=== PATIENT | male | born 1960 | race Caucasian/White ===

== ENCOUNTER 2022-05-07 08:30 | Outpatient (RCR) | payer OTHER, SELFPAY ==
--- NOTE | 2022-04-23 12:25 | ST.IPIE ---
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 Barksdale Reason for Referral dysphonia Setting Setting Outpatient Care Patient History Patient History Pt presents for a voice evaluation secondary to vocal hoarseness and fatigue. He was examined by Dr. Barksdale, who noted true vocal folds to be WNL in form but noted vocal fold tension during phonation. Pt reported that since his appointment with Dr. Barksdale, his voice has improved with no aphonic episodes. He described his improvement as ~ 40-50% better. Pt has a PMH of reflux (treated successfully via surgery, per pt) and hearing loss. 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 Pt reported that he will get seasonal allergies, although he has never had his allergies tested. PND and phlegm were described as causing frequent throat clearing. He reported drinking 1-2 quarts of water daily. 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 he has hearing aids, per MD report, but does not wear them. Educational Status Education Level graduate degree Occupational Status Occupation Status retired [employer] Previous Therapy Previous Speech-Language Therapy No Oral Motor Assessment Source: [place] [employer] ([employer]). Oral-Motor Eval Completed Informal observation indicated oral structures and function to be WNL Subjective Subjective Pt is pleasant and enjoys talking. He describes himself as a talker with a lot of embellishment. He noted that he talks loudly and with emphasis. - Laryngeal Performance S/Z Ratio Functional for Speech Yes Reduced Laryngeal Function Relative to No Respiration CAPE-V Overall Severity 15 Roughness 18 Breathiness 10 Strain 0 Pitch 0 Loudness 0 Normal Resonance? Yes Other Features Observed Vocal quality was observed to drop into glottal evans; self corrected Maximum Phonation Time MPT Norms: Women (15-25) Men (25-35) Loudness (50-60 dB); Speaking Rate: Oral Reading of Sentences (190 Words Per Minute); Oral Reading of Paragraphs (160-170 WPM); Speaking Rate in Conversation (150-250 WPM) Maximum Phonation Time 21.5s Maximum Phonation Time Adequate for Speech Jitter/Shimmer Norms: Jitter (Less than or equal to 1.040% - Frequency) Norms: Shimmer (Less than or equal to 3.810% - Amplitude) Jitter .46 Shimmer 5.34 Pitch [place] Pitch [place] WNL Muscle Tension Assessment Muscle Tension Assessment Neck,Shoulders Breath Support Breath Support At Rest Abdominal Breath Support Sustained Phonation Abdominal Breath Support Conversation Abdominal Speaks on Room Air Yes Postural Alignment Stance Militaristic Voice Pitch Range Norms: Women (100-300 Hz) Men (70-250 Hz) Fundamental Frequency Norms: Women (Mean: 225 Hz; Range: 155-334 Hz) Men ( Mean: 128 Hz; Range: 85-196 Hz) Voice Pitch Normal Voice Loudness Mildly Loud Voice Phonatory-based Quality Normal Fundamental Frequency 129.2 Hz Intensity WNL to mildly loud Paradoxical Vocal Fold Movement No Indications Resonance Nasal Resonance Normal Other Observations Throat Clearing Findings Findings No Impairment Voice/Resonance Assessment Assessment Pt presented for assessment of voice due to concerns of hoarseness fading to aphonia. Pt reported this to have started in June/July. Prior to that time, he had moved from [place] to [place] to retire. Pt did report improvement in his voice over the past few months . The results of the assessment performed today indicated vocal parameters to be WNL. Vocal quality was observed to be WNL to mildly hoarse. It was suggested that the pt cbe referred for allergy testing. As the pt had recently changed locations, he may have become exposed to new allergens, increasing PND/ phlegm and thereby irritating the vocal tract. As the pt is a self-described loquacious person, the amount of and intensity of his vocal use resulted in irritated vocal folds resulting in hoarseness. Pt indicated he would start taking an antihistamine daily to see if would be beneficial. He was encouraged to speak with Dr. Barksdale about that idea. A follow-up appointment is scheduled. Prognosis Rehabilitation Potential Excellent - Recommendations Treatment Recommended Yes: 1-2 appointments as follow up [facility] Goals Pt's vocal quality will improve to WNL Referrals Voice/Resonance Other Referral Logger Patient/Caregiver Education Patient/Family Education Described results of evaluation,Patient Understanding Vocally Abusive Behavior Behavior Rating Environmental Irritant Exposure possible allergies Excessive Talking Always
--- NOTE | 2022-05-07 09:06 | ST.OPPOC ---
Physical, Occupational & Speech Therapy At [facility] Visit Care Team Role Provider Type Neeraj Wright MD Family Provider Physician Primary Care Provider Address: [address], [address], [place], [address] Oli Barksdale MD Attending Provider Physician Referring Provider Address: [address] [place] [address], [address] Speech Pathology Plan of Care Plan of Care Dates 04/23/22-07/23/[address] Barksdale Patient History Pt presents for a voice evaluation secondary to vocal hoarseness and fatigue. He was examined by Dr. Barksdale, who noted true vocal folds to be WNL in form but noted vocal fold tension during phonation. Pt reported that since his appointment with Dr. Barksdale, his voice has improved with no aphonic episodes. He described his improvement as ~40-50% better. Pt has a PMH of reflux (treated successfully via surgery, per pt) and hearing loss. 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 Pt reported that he will get seasonal allergies, although he has never had his allergies tested. PND and phlem were described as causing frequent throat clearing. He reported drinking 1 -2 quarts of water daily. [ End ] Impairments Identified Voice Short Term Goals Pt presented for assessment of voice due to concerns of hoarseness fading to aphonia. Pt reported this to have started in June/ July. Prior to that time, he had moved from [place] to [place] to retire. Pt did report improvement in his voice over the past few months. The results of the assessment performed today indicated vocal parameters to be WNL. Vocal quality was observed to be WNL to mildly hoarse. It was suggested that the pt be referred for allergy testing. As the pt had recently changed locations, he may have become exposed to new allergens, increasing PND/phlegm and thereby irritating the vocal tract. As the pt is a self -described loquacious person, the amount of and intensity of his vocal use resulted in irritated vocal folds resulting in hoarseness. Pt indicated he would start taking an antihistamine daily to see if would be beneficial. He was encouraged to speak with Dr. Barksdale about that idea. A follow-up appointment is scheduled. Correction Goals Pt's vocal quality will improve to WNL Progress Towards Goals Excellent Progress Comment: Electronically Signed by: OLIVIA Chen 05/07/22 0906 If you are in agreement with this Plan of Care, please return a signed and dated copy. I have reviewed this Plan of Care and certify that the skilled therapy services above are required to meet the patient?s needs. Physician Signature Date Printed Name and Credentials Clinical Instructor Signature Printed Name and Credentials
--- NOTE | 2022-05-07 09:07 | ST.OPTN ---
Visit Care Team Role Provider Type Neeraj Wright MD Family Provider Physician Primary Care Provider Address: [address], [address], [place], [address] Oli Barksdale MD Attending Provider Physician Referring Provider Address: [address] [place] [address], [address] DRYING ROOM SUPERVISOR Treatment Note DRYING ROOM SUPERVISOR Treatment Note Start: 04/23/22 10:09 Freq: Status: Active Protocol: Document 05/07/22 08:54 LNK (Rec: 05/07/22 09:06 LNK [id number]) Speech Pathology Treatment Note Session Time Visit Start Time 08:30 Visit Stop Time 09:00 Total Visit Minutes 30 Visit Information Visit Number 2 Plan of Care Dates 04/23/22-07/23/22 Setting Treatment Setting Outpatient Care Visit Type Note Type Treatment Note Next Note Type Next Note Type Discharge Summary General Information Patient History Pt presents for a voice evaluation secondary to vocal hoarseness and fatigue. He was examined by Dr. Barksdale, who noted true vocal folds to be WNL in form but noted vocal fold tension during phonation. Pt reported that since his appointment with Dr. Barksdale, his voice has improved with no aphonic episodes. He described his improvement as ~ 40-50% better. Pt has a PMH of reflux (treated successfully via surgery, per pt) and hearing loss. 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 Pt reported that he will get seasonal allergies, although he has never had his allergies tested. PND and phlem were described as causing frequent throat clearing. He reported drinking 1-2 quarts of water daily. [ End ] Subjective Identification Type Name,Date of Chief Complaint(s) Voice Patient Knowledge/Awareness of DRYING ROOM SUPERVISOR Role Excellent in Treatment Patient/Caregiver Compliance with Home Excellent Exercise Program Objective Short Term Goals Pt presented for assessment of voice due to concerns of hoarseness fading to aphonia. Pt reported this to have started in June/July. Prior to that time, he had moved from [place] to [place] to retire. Pt did report improvement in his voice over the past few months . The results of the assessment performed today indicated vocal parameters to be WNL. Vocal quality was observed to be WNL to mildly hoarse. It was suggested that the pt be referred for allergy testing. As the pt had recently changed locations, he may have become exposed to new allergens, increasing PND/ phlegm and thereby irritating the vocal tract. As the pt is a self-described loquacious person, the amount of and intensity of his vocal use resulted in irritated vocal folds resulting in hoarseness. Pt indicated he would start taking an antihistamine daily to see if would be beneficial. He was encouraged to speak with Dr. Barksdale about that idea. A follow-up appointment is scheduled. Treatment Activities Pt seen for follow-up appointment. Pt initially c/o hoarseness and loss of voice by the end of the day. Following the assessment on 04/23/22, it was recommended at that time that pt discuss the possibility of allergies as contributing to his vocal quality. Pt returned today and indicated that he started taking an antihistamine daily . He reported that his voice has improved significantly. He feels his vocal quality is back to normal and he hasn't lost his voice since starting the antihistamine. Pt indicated he did not need to return for therapy. Will discharge. Assessment Patient Response to Treatment Excellent Impairments Identified Voice Progress Towards Goals Excellent Progress Assessment of Overall Progress Rehabilitated Patient/Caregiver Understanding Excellent Plan Amount of Therapy Recommended No Further Therapy Frequency of Treatment No Further Therapy Therapy Recommendations Discharge from Speech Therapy
--- NOTE | 2022-05-07 09:09 | ST.OPDS ---
Visit Care Team Role Provider Type Neeraj Wright MD Family Provider Physician Primary Care Provider Address: [address], [address], [place], [address] Oli Barksdale MD Attending Provider Physician Referring Provider Address: [address] [place] [address], [id number] CAMP[facility] DEAN Treatment Note C[facility]AN Treatment Note Start: 04/23/22 10:09 Freq: Status: Active Protocol: Document 05/07/22 09:09 [email or web address] (Rec: 05/07/22 09:09 LNK [id number]) Speech Pathology Treatment Note Session Time Visit Start Time 08:30 Visit Stop Time 09:00 Total Visit Minutes 30 Visit Information Visit Number 2 Plan of Care Dates 04/23/22-07/23/22 Setting Treatment Setting Outpatient Care Visit Type Note Type Discharge Summary Next Note Type Next Note Type Discharge Summary General Information Patient History Pt presents for a voice evaluation secondary to vocal hoarseness and fatigue. He was examined by Dr. Barksdale, who noted true vocal folds to be WNL in form but noted vocal fold tension during phonation. Pt reported that since his appointment with Dr. Barksdale, his voice has improved with no aphonic episodes. He described his improvement as ~ 40-50% better. Pt has a PMH of reflux (treated successfully via surgery, per pt) and hearing loss. 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 Pt reported that he will get seasonal allergies, although he has never had his allergies tested. PND and phlegm were described as causing frequent throat clearing. He reported drinking 1-2 quarts of water daily. [ End ] Subjective Identification Type Name,Date of Chief Complaint(s) Voice Patient Knowledge/Awareness of CAMP[facility] DEAN Role Excellent in Treatment Patient/Caregiver Compliance with Home Excellent Exercise Program Objective Short Term Goals Pt presented for assessment of voice due to concerns of hoarseness fading to aphonia. Pt reported this to have started in June/July. Prior to that time, he had moved from [place] to [place] to retire. Pt did report improvement in his voice over the past few months . The results of the assessment performed today indicated vocal parameters to be WNL. Vocal quality was observed to be WNL to mildly hoarse. It was suggested that the pt be referred for allergy testing. As the pt had recently changed locations, he may have become exposed to new allergens, increasing PND/ phlegm and thereby irritating the vocal tract. As the pt is a self-described loquacious person, the amount of and intensity of his vocal use resulted in irritated vocal folds resulting in hoarseness. Pt indicated he would start taking an antihistamine daily to see if would be beneficial. He was encouraged to speak with Dr. Barksdale about that idea. A follow-up appointment is scheduled. Treatment Activities Pt seen for follow-up appointment. Pt initially c/o hoarseness and loss of voice by the end of the day. Following the assessment on 04/23/22, it was recommended at that time that pt discuss the possibility of allergies as contributing to his vocal quality. Pt returned today and indicated that he started taking an antihistamine daily . He reported that his voice has improved significantly. He feels his vocal quality is back to normal and he hasn't lost his voice since starting the antihistamine. Pt indicated he did not need to return for therapy. Will discharge. Assessment Patient Response to Treatment Excellent Impairments Identified Voice Progress Towards Goals Excellent Progress Assessment of Overall Progress Rehabilitated Patient/Caregiver Understanding Excellent Plan Amount of Therapy Recommended No Further Therapy Frequency of Treatment No Further Therapy Therapy Recommendations Discharge from Speech Therapy
== END 2022-05-08 11:45 | disposition home or self-care (01) ==
LOC: SP 08:30
PROVIDERS: Family Provider Internal Medicine; PCP Internal Medicine; Referring Provider Otolaryngology; Visit Provider Otolaryngology
DX: K11.5 Sialolithiasis (principal); R49.0 Dysphonia; R49.8 Other voice and resonance disorders
CPT/HCPCS: 92507; 92520; 92524